=== PATIENT | female | born 1955 | race Caucasian/White ===

== ENCOUNTER 2023-04-13 03:05 | Day surgery (SDC) | payer MEDICARE, SELFPAY ==
[2023-03-26 08:34] VITALS: BMI 27.2
--- NOTE | 2023-04-11 09:24 | SUR.PREOP ---
Patient called regarding upcoming procedure. Reviewed preop instructions, appointment times, and procedure prep.
--- NOTE | 2023-04-12 16:22 | PM.HPGS ---
History of Present Illness History of Present Illness Consent: Risks, benefits, and alternatives have been discussed and questions answered. Patient agrees to proceed with procedure. Chief complaint: neoplasm screening Narrative: Viktoriya Vasquez is a 67 year old female Undergoing colon cancer screening. Her last colonoscopy was 10 years ago. She does have factor 5 Leiden deficiency Review of Systems Review of Systems: All systems reviewed & are unremarkable except as noted in HPI and below PMFSH Past Medical History Medical History Allergies Arthritis GERD (gastroesophageal reflux disease) Hx of blood clots Hx of hyperlipidemia Hx of migraines Family History Family History Mother Acute myocardial infarction Heart disease Hypertension Father Diabetes mellitus Other Family history of heart disease in male family member before age 55 Social History Social History Smoking status: Never smoker Alcohol intake: current Drinks per week: 1 Alcohol use details: Rarely Substance use: never Substance use type: does not use Meds Home Medications and Allergies Home Medications Medication Instructions Recorded Confirmed Type sumatriptan succinate 50 mg tablet 50 mg PO .PRN 01/23/23 03/26/23 History (Imitrex) Allergies Allergy/AdvReac Type Severity Reaction Status Date / Time No Known Allergies Allergy Verified 04/13/23 07:51 Exam Resp: Auscultation: clear to auscultation bilaterally Cardio: Rate: regular rate Rhythm: regular rhythm GI: GI Palp: Yes Soft to palpation and No Tenderness to palpation present (GI) Assessment and Plan Assessment and plan (1) Encounter for colorectal cancer screening: Code(s): Z12.11 - Encounter for screening for malignant neoplasm of colon; Z12.12 - Encounter for screening for malignant neoplasm of rectum Status: Acute Assessment and Plan: Colonoscopy with possible biopsy or polypectomy or cautery or injection of substances.
[2023-04-13 07:52] VITALS: BP 122/74; PULSE 101; RESP 20; TEMP 36.8; O2SAT 99
[2023-04-13] MEDS: LACTATED RINGERS 1,000 ML 150 ML IV CONT (07:59)
--- NOTE | 2023-04-13 08:59 | P.PNAN_ITS ---
Anes - Initial Pre Proc Eval Procedure: Operation Date: 04/13/23 09:00 Proposed Procedures p Screening Colonoscopy - Joel Allen MD Date/Time: 04/13/23 08:59 Surgeon: Joel Allen MD Pre Op Diagnosis: neoplasm screening Patient Data Age: 67 Gender: F Height: 1.63 m Weight: 72.4 kg Last Vital Signs Temp 98.2 F 04/13/23 07:52 Pulse 101 H 04/13/23 07:52 Resp 20 04/13/23 07:52 BP 122/74 04/13/23 07:52 Pulse Ox 99 04/13/23 07:52 O2 Del Method Room Air 04/13/23 07:52 Allergies Allergy/AdvReac Type Severity Reaction Status Date / Time No Known Allergies Allergy Verified 04/13/23 07:51 Home Medications Medication Instructions Recorded Confirmed Type sumatriptan succinate 50 mg tablet 50 mg PO .PRN 01/23/23 03/26/23 History (Imitrex) Patient hx anesthesia problems: none Family hx anesthesia problems: none Results Review: All pre-operative results and documents have been reviewed as part of the pre- operative evaluation. [facility] Past Medical History Medical History Allergies Arthritis GERD (gastroesophageal reflux disease) Hx of blood clots Hx of hyperlipidemia Hx of migraines Family History Family History Mother Acute myocardial infarction Heart disease Hypertension Father Diabetes mellitus Other Family history of heart disease in male family member before age 55 Social History Social History Smoking status: Never smoker Alcohol intake: current Drinks per week: 1 Alcohol use details: Rarely Substance use: never Substance use type: does not use Anes - Eval Final PreProcedure Day of Procedure 04/13/23 08:59 Patient weight: normal Heart: regular rate and rhythm Lungs: clear to auscultation Airway: Mallampati scale class II Neurological: alert and oriented Last oral intake: >/= 8 hours ASA classification: II Emergent: no Anesthetic plan: proceed Anesthesia type and monitoring: general GIVS and standard monitoring Results Review: All pre-operative results and documents have been reviewed as part of the pre- operative evaluation. Informed Consent: The patient's anesthetic plan and its attendant risks and benefits were discussed with the patient/family/POA. Questions were solicited and answers provided to the satisfaction of the patient/family/POA.
[2023-04-13 09:15] VITALS: BP 93/58; PULSE 77; RESP 20; O2SAT 99
[2023-04-13 09:25] VITALS: BP 103/54; PULSE 73; RESP 17; O2SAT 99
[2023-04-13 09:35] VITALS: BP 115/72; PULSE 76; RESP 18; O2SAT 99
== END 2023-04-13 09:41 | disposition home or self-care (01) ==
PROVIDERS: PCP Family Medicine; Visit Provider Internal Medicine Gastroenterology
PROC: 0DJD8ZZ Inspection of Lower Intestinal Tract, Via Natural or Artificial Opening Endoscopic (ICD-10-PCS; CPT 45378; principal; 2023-04-13 09:00)
DX: Z12.11 Encounter for screening for malignant neoplasm of colon (principal); D68.51 Activated protein C resistance; E78.5 Hyperlipidemia, unspecified
CPT/HCPCS: G0121; J2704; J7120